=== PATIENT | male | born 1955 | race Caucasian/White ===

== ENCOUNTER 2018-04-13 21:34 | Emergency (ER) | payer MEDICARE, OTHER ==
[~2018-04-13] VITALS: Ht 172.7 cm; Wt 111.1 kg
[~2018-04-13 21:34] MED LIST: ACET325 PO; ADDERALL PO; AMOCLA400S PO; AMOCLA500 PO; AMOX875 PO; AMPDEX10CR PO; ARIP10 PO; ASPI81CH PO; ASPI81EC; ASPI81EC PO; Abilify5 MG PO; Adderall 20 MG20 MG PO; Aspir-Low81 MG PO; Augmentin 875-1 EACH PO; BENA10; BUPR150ER PO; BUPR150T2; Bactrim Ds Tab1 EACH PO; CALCIUM 600 +1 EA11 PO; CEFP200 PO; CHOL10002 PO; CIPR500 PO; CITA20 PO; CLON1 PO; CYCL10 PO; DIAZ10 PO; DOUBLE ANTIBI28.4 GM TOP; DULO60 PO; Depo-Testos200 MG/ML IM; FLUO20; GABA300 PO; GAVILAX17 GM PO; GLIM4; GLIM4 PO; HYDACE10A; HYDACE10B PO; HYDACE5 PO; HYDCHL25; HYDCHL25 PO; HYDCOR2.5B TOP; Hair, Skin & N1 EACH PO; INSLIS75I SC; INSUASPI SUBQ; INSULANI SUBQ; INSULANPEN SUBQ; LAVAP17G; LAVAP17G PO; LISHYD2025 PO; LISI20 PO; Levaquin500 MG PO; Lisinopril2.5 MG; MEDICAL MARIJUANA INH; METF500; METF500 PO; METF500C PO; METH10; METH10 PO; METO10 PO; METO5A PO; Metformin HCl1000 MG PO; NAPR500 PO; NIAC500ER; NIAC500ER PO; Nitrofurantoin50 MG PO; Norco 10-325 T1 EACH PO; OMEG1CAP30; OMEG1CAP30 PO; OMEP10ER; OMEP20ER PO; OXYACE5T PO; Omeprazole20 M1 PO; PARO20 PO; PAXIL40 MG PO; PRAV20; PRAV20 PO; PRIM50 PO; PROM25; PROM25 PO; Pravachol80 MG PO; Pravastatin Sod80 MG PO; RANI150; RANI150 PO; ROSI4; RXHYDACE PO; SPIR25; SPIR50 PO; SULTRIDS PO; Sulfamethoxazo1 EAC4 PO; TAMS.4ER PO; TESTTP TOP; TIOT18; TIOT18 INH; TRAZ50; ZESTORETIC 20-251 EA PO; Zofran Odt4 MG SL; [UNRECOGNIZED DRUG - REMARK]
== END 2018-04-13 22:49 | disposition left against medical advice (07) ==
LOC: ER 21:34
DX: Z53.21 Procedure and treatment not carried out due to patient leaving prior to being seen by health care provider (principal)
CPT/HCPCS: J2405

== ENCOUNTER 2018-11-22 11:56 | Inpatient (IN) | payer MEDICARE ==
[~2018-11-22] VITALS: Ht 180.3 cm; Wt 132.6 kg
[~2018-11-22 11:56] MED LIST changes: -Aspir-Low81 MG PO
[2018-11-22 12:56] LABS: BASOPHILS ABSOLUTE AUTO 0.03 K/mm3 (0.00-0.23); BASOPHILS PERCENT AUTO 0 % (0-2); EOSINOPHILS PERCENT AUTO 0 % (0-6); Hematocrit 40.2 % (37.0-53.0); Hemoglobin 13.4 g/dL (13.5-17.5); IMMATURE GRAN ABSOLUTE AUTO 0.06 K/mm3 (0.00-0.10); IMMATURE GRAN PERCENT AUTO 1 % (0-1); LYMPHOCYTES ABSOLUTE AUTO 0.54 K/mm3 (0.84-5.20); LYMPHOCYTES PERCENT AUTO 6 % (21-46); MONOCYTES ABSOLUTE AUTO 0.33 K/mm3 (0.16-1.47); MONOCYTES PERCENT AUTO 4 % (4-13); Mean Corpuscular HGB 28.3 pg (26.0-34.0); Mean Corpuscular HGB Conc 33.3 g/dL (31.5-36.5); Mean Corpuscular Volume 85 fL (80-100); Mean Platelet Volume 9.6 fL (9.1-12.4); NEUTROPHILS ABSOLUTE AUTO 7.42 K/mm3 (1.96-9.15); NEUTROPHILS PERCENT AUTO 89 % (41-73); Platelet Count 109 K/mm3 (150-400); RDW Coefficient Variation 14.4 % (11.7-14.2); RDW Standard Deviation 44.5 fL (35.1-46.3); Red Blood Cell Count 4.74 M/mm3 (4.30-5.90); White Blood Cell Count 8.38 K/mm3 (4.00-11.30)
[2018-11-22 13:20] LABS: Albumin, Blood 3.3 g/dL (3.4-5.0); Albumin/Globulin Ratio 0.8 (0.8-1.8); Bun/Creatinine Ratio 13.9 (12.0-20.0); Calcium, Blood 7.9 mg/dL (8.5-10.1); Creatinine, Blood 2.02 mg/dL (0.60-1.20); Globulin, Blood 4.1 g/dL (2.2-4.0); Total Protein, Blood 7.4 g/dL (6.4-8.2)
[2018-11-22] MEDS ORDERED: **INCOMPLETE MED REC (16:20)
[2018-11-22] MEDS ORDERED: ARIPIPRAZOLE5 MG PO (16:47)
[2018-11-22] MEDS ORDERED: Aspir-Low81 MG PO (16:48)
[2018-11-22] MEDS ORDERED: Lantus100 UNIT/1 SC (16:50)
[2018-11-22] MEDS ORDERED: Humalog100 UNIT/1 SC (16:52)
[2018-11-22] MEDS ORDERED: Metformin HCl500 MG PO (16:54)
[2018-11-22] MEDS ORDERED: PRIM50 PO (16:56)
[2018-11-22] MEDS ORDERED: ATOR10 PO (16:58)
[2018-11-22] MEDS ORDERED: OMEG1CAP30 PO (16:59)
[2018-11-22] MEDS ORDERED: PARO20 PO (18:08)
[2018-11-22] MEDS ORDERED: ZESTORETIC 20-1 EAC1 PO (18:09)
[2018-11-22] MEDS ORDERED: Bactrim Ds Tab1 EACH PO (18:11)
--- NOTE | 2018-11-22 21:00 | NUR ---
PATIENT ADMITTED THE PATIENT WAS ADMITTED TO THE MEDICAL FLOOR, ROOM #309, FOR CELLULITSIS ON THE RIGHT LOWER LEG. THE PATIENT WAS BROUGHT UP FOR THE ER AFTER REPORT WAS CALLED UP TO THE FLOOR. THE PATIENT'S ADMISSION WAS DONE IN PART BY THE CHARGE NURSE AND THE ADMIOSSION ASSESSMENT BY THE FLOOR NURSE. THE PATIENT COMPLAINED OF PAIN IN HIS LOWER RIGHT LEG, VITALS WERE WNL, LUNGS WERE CLEAR, BUT DIM IN THE BASES, THE PATIENT WAS A&O X4. WILL CONTINUE TO MONITOR.
--- NOTE | 2018-11-23 04:18 | NUR ---
SHIFT SUMMARY THE NOEL WAS ADMITTED TO THE MED FLOOR AT THE START OF THE SHIFT. THE PATIENT IS A&O X4, VITALS WNL AND WITH LUNGS SOUNDS THAT ARE CLEAR, BUT DIM AT THE BASES. THE PATIENT HAS BEEN SLEEPING SINCE 2300, WILL CONTINUE TO MONITOR.
[2018-11-23 05:24] LABS: BASOPHILS ABSOLUTE AUTO 0.02 K/mm3 (0.00-0.23); BASOPHILS PERCENT AUTO 0 % (0-2); Hematocrit 33.6 % (37.0-53.0); Hemoglobin 11.2 g/dL (13.5-17.5); LYMPHOCYTES ABSOLUTE AUTO 0.79 K/mm3 (0.84-5.20); LYMPHOCYTES PERCENT AUTO 15 % (21-46); MONOCYTES ABSOLUTE AUTO 0.33 K/mm3 (0.16-1.47); MONOCYTES PERCENT AUTO 6 % (4-13); Mean Corpuscular HGB 28.4 pg (26.0-34.0); Mean Corpuscular HGB Conc 33.3 g/dL (31.5-36.5); Mean Corpuscular Volume 85 fL (80-100); Mean Platelet Volume 9.8 fL (9.1-12.4); Platelet Count 88 K/mm3 (150-400); RDW Coefficient Variation 14.6 % (11.7-14.2); RDW Standard Deviation 45.4 fL (35.1-46.3); Red Blood Cell Count 3.95 M/mm3 (4.30-5.90); White Blood Cell Count 5.37 K/mm3 (4.00-11.30)
[2018-11-23 05:34] LABS: EOSINOPHILS ABSOLUTE AUTO 0.02 K/mm3 (0.00-0.68); EOSINOPHILS PERCENT AUTO 0 % (0-6); IMMATURE GRAN ABSOLUTE AUTO 0.03 K/mm3 (0.00-0.10); IMMATURE GRAN PERCENT AUTO 1 % (0-1); NEUTROPHILS ABSOLUTE AUTO 4.18 K/mm3 (1.96-9.15); NEUTROPHILS PERCENT AUTO 78 % (41-73)
[2018-11-23 06:05] LABS: Bun/Creatinine Ratio 16.7 (12.0-20.0); Calcium, Blood 7.6 mg/dL (8.5-10.1); Creatinine, Blood 1.68 mg/dL (0.60-1.20); Potassium, Blood 3.8 mmol/L (3.5-5.5)
--- NOTE | 2018-11-23 10:05 | NUR ---
Pt gave [facility] permission to provide care 11/23/18.
--- NOTE | 2018-11-23 18:29 | NUR ---
1828 called provider consult to doctor kaplan per doc order. left message on his personal cell.
--- NOTE | 2018-11-23 18:41 | NUR ---
ACCORDING TO FAMILY AND PATIENT HIS LEG IS INCREASED IN SWELLING AND PAIN. PROVIDER CONSULT CALLED PER DOC ORDER FOR DR WRIGHT. MESSAGE LEFT ON HIS PHONE. FAMILY AT BEDSIDE. CBGS ON THE RISE THIS SHIFT.
[2018-11-23] MEDS ORDERED: ARIP30 PO (20:47)
--- NOTE | 2018-11-24 04:54 | NUR ---
SHIFT SUMMARY THE PATIENT PRESENT THIS SHIFT WITH ELEVATED B/P, BUT RETAKING IT 30 MINUTES LATER, IT HAD RETURNED TO NORMAL LIMITS. THE PATIENT IS A&O X4, WITH LUNGS THAT WERE CLEAR, BUT DIM AT THE BASES. THE PATIENT'S SPOUSE IS IN THE ROOM WITH THE PATIENT. THE PATIENT HAS SLEPT MOST OF SHIFT. THE PATIENT'S LEG DRESSINGS WERE CHANGED THIS SHIFT. THE PATIENT IS SLEEPING AT THIS TIME, WILL CONTINUE TO MONITOR.
[2018-11-24 05:12] LABS: Hematocrit 31.5 % (37.0-53.0); Hemoglobin 10.4 g/dL (13.5-17.5); Mean Corpuscular HGB 28.1 pg (26.0-34.0); Mean Corpuscular Volume 85 fL (80-100); Mean Platelet Volume 9.8 fL (9.1-12.4); Platelet Count 89 K/mm3 (150-400); RDW Coefficient Variation 14.1 % (11.7-14.2); White Blood Cell Count 6.21 K/mm3 (4.00-11.30)
[2018-11-24 05:32] LABS: Albumin, Blood 2.2 g/dL (3.4-5.0); Anion Gap 10 mmol/L (6-16); Blood Urea Nitrogen 18 mg/dL (8-24); Bun/Creatinine Ratio 14.5 (12.0-20.0); CO2, Blood 23 mmol/L (21-32); Calcium, Blood 7.8 mg/dL (8.5-10.1); Chloride, Blood 99 mmol/L (98-108); Creatinine, Blood 1.24 mg/dL (0.60-1.20); Glomerular Filtration Rate >60 (60-); Glucose, Blood 271 mg/dL (70-99); Phosphorus, Blood 1.9 mg/dL (2.5-4.9); Potassium, Blood 3.9 mmol/L (3.5-5.5); Sodium, Blood 132 mmol/L (136-145)
[2018-11-24 18:07] LABS: Vancomycin, Trough 5.7 ug/mL (5.0-10.0)
--- NOTE | 2018-11-24 18:38 | NUR ---
PATIENT HAD DRESSING CHANGED TO AFFECTED LEG. DR WRIGHT CAME BY, NEG FOR DVT. PATIENT HAS RESTED MOST OF THE SHIFT. LARGE BM .
--- NOTE | 2018-11-25 04:23 | NUR ---
SHIFT SUMMARY THE PATIENT PRESENTED THIS SHIFT WITH VITALS WNL, A&O X4 AND WITH LUNGS SOUNDS THAT WERE CLEAR, BUT DIM IN THE BASES. THE PATIENT HAD A DOPPLER STUDY OF HIS RIGHT LOWER LEG TO CHECK FOR THROMBOSIS AND NEEDED TO HAVE HIS LEG REWRAPPED AT THE START OF SHIFT. THE PATIENT'S SPOUSE IS IN THE ROOM WITH THE PATIENT. THE PATIENT'S IV IS S/L AT THIS TIME. THE PATIENT HAS COMPLAINED OF PAIN TWICE THIS SHIFT AND RECEIVED MEDICATION PER ORDERS. THE PATIENT IS RESTING AT THIS TIME, WILL CONTINUE TO MONITOR.
[2018-11-25 04:45] LABS: Hematocrit 31.6 % (37.0-53.0); Hemoglobin 10.4 g/dL (13.5-17.5); Mean Corpuscular HGB 28.2 pg (26.0-34.0); Mean Corpuscular HGB Conc 32.9 g/dL (31.5-36.5); Mean Corpuscular Volume 86 fL (80-100); Mean Platelet Volume 9.7 fL (9.1-12.4); Platelet Count 112 K/mm3 (150-400); RDW Coefficient Variation 14.3 % (11.7-14.2); RDW Standard Deviation 44.9 fL (35.1-46.3); Red Blood Cell Count 3.69 M/mm3 (4.30-5.90); White Blood Cell Count 6.93 K/mm3 (4.00-11.30)
[2018-11-25 05:04] LABS: Albumin, Blood 2.1 g/dL (3.4-5.0); Anion Gap 9 mmol/L (6-16); Blood Urea Nitrogen 18 mg/dL (8-24); Bun/Creatinine Ratio 15.9 (12.0-20.0); CO2, Blood 25 mmol/L (21-32); Calcium, Blood 8.2 mg/dL (8.5-10.1); Chloride, Blood 98 mmol/L (98-108); Creatinine, Blood 1.13 mg/dL (0.60-1.20); Glomerular Filtration Rate >60 (60-); Glucose, Blood 391 mg/dL (70-99); Phosphorus, Blood 3.1 mg/dL (2.5-4.9); Potassium, Blood 4.2 mmol/L (3.5-5.5); Sodium, Blood 132 mmol/L (136-145)
--- NOTE | 2018-11-25 12:17 | NUR ---
NOTIFIED DR LEBRON OF [facility] [place] OF 442, NO NEW ORDERS, CONTINUE WITH CURRENT ORDERS
--- NOTE | 2018-11-25 18:18 | NUR ---
NOTIFIED DR LEBRON OF BLOOD GLUCOSE TRENDING UP AND HOME MEDICATION LIST STATES HE TAKES LANTUS 65 UNITS SC DAILY AND HE IS ONLY RECEIVING LANTUS 15UNITS SC BID. NEW TELEPHONE ORDER FOR LANTUS 20 UNITS SC BID. WILL CONTINUE TO MONITOR.
--- NOTE | 2018-11-25 19:00 | NUR ---
SHIFT SUMMARY PT A&OX4. CALM AND COOPERATIVE WITH CARE. PT RESTING IN BED. SPOUSE ASSIST WITH URINAL IN BED. PT REPORTS PAIN IN RLE, MEDICATED PER EMAR. PT SOB WITH EXERTION >90% ON RA, LS DIM IN BASES. PT DENIES N/V DURING SHIFT. PT RECEIVING IV ANTIBIOTICS. PT BLOOD GLUCOSE TRENDING UP, NOTIFIED. DRESSING CHANGED THIS EVENING, NEW MARGINS MARKED AND PICTURES TAKEN. VSS. NO OTHER ACUTE CHANGES NOTE DURING SHIFT. REPORT GIVEN TO ONCOMING RN.
[2018-11-25 19:31] LABS: Vancomycin, Trough 15.7 ug/mL (5.0-10.0)
--- NOTE | 2018-11-26 04:40 | NUR ---
SHIFT SUMMARY: PT A&O X 4, INDEPENDENT IN ROOM c 'S ASSISTANCE. RLE CELLULITIS; RED + BLISTERING, YELLOW DRAINAGE. DRESSING CHANGE PERFORMED BY ARMANDO ALEJANDRO. DRESSING CHANGE ORDERS QD. IV VANCO ADMINISTERED 1X PER SCHEDULED DOSE. RESP E/U ON ROOM AIR; LS CLEAR. ADA DIET MAINTAINED; PM CBG IS AT 347. ADMINISTERED HUMALOG PER HIGH SS AND 15 UNITS LANTUS PER ORDERS. TREATED 1X c 5 MG PRN OXYCODONE FOR 8 OUT OF 10 PAIN IN TO THE RLE. 20 G IN R FOREARM IS PATENT + SALINE LOCKED AT THIS TIME. NO OTHER CHANGES TO REPORT. WILL CONT TO MONITOR AND PROVIDE CARE UNTIL PRESUMED BY ONCOMING RN.
[2018-11-26 11:06] LABS: F001-IGE EGG WHITE <0.10 kU/L (Class 0); F002-IGE MILK <0.10 kU/L (Class 0); F003-IGE CODFISH <0.10 kU/L (Class 0); F004-IGE WHEAT <0.10 kU/L (Class 0); F010-IGE SESAME SEED <0.10 kU/L (Class 0); F013-IGE PEANUT <0.10 kU/L (Class 0); F014-IGE SOYBEAN <0.10 kU/L (Class 0); F017-IGE HAZELNUT (FILBERT) <0.10 kU/L (Class 0); F020-IGE ALMOND <0.10 kU/L (Class 0); F024-IGE SHRIMP <0.10 kU/L (Class 0); F040-IGE TUNA <0.10 kU/L (Class 0); F041-IGE SALMON <0.10 kU/L (Class 0); F202-IGE CASHEW NUT <0.10 kU/L (Class 0); F256-IGE WALNUT <0.10 kU/L (Class 0); F338-IGE SCALLOP <0.10 kU/L (Class 0)
--- NOTE | 2018-11-26 18:15 | NUR ---
PT AXO, PLEASANT AND COOPERATIVE WITH CARE. DRESSING CHANGED THIS MORNING WITH DR LEBRON PRESENT. DRESSING CHANGES INCREASED TO BID. VSS. NO ACUTE CHANGES THIS SHIFT. PT MEDICATED FOR PAIN PER EMAR. IV LEAKING, DRESSING CHANGED, IMPROVED. ANOTHER IV ATTEMPTED BUT NO SUCCESSFUL AT THIS TIME. BED IN LOW POSITION, CALL LIGHT WITHIN REACH. PT'S SPOUSE COMPLETED BED BATH ON PATIENT AND CHANGED PT'S LINENS. PT AND SPOUSE EDUCATED ON NON-STARCHY VEGETABKES AND ADA WEBSITE.
[2018-11-27 04:50] LABS: BASOPHILS ABSOLUTE AUTO 0.03 K/mm3 (0.00-0.23); BASOPHILS PERCENT AUTO 1 % (0-2); EOSINOPHILS ABSOLUTE AUTO 0.22 K/mm3 (0.00-0.68); EOSINOPHILS PERCENT AUTO 4 % (0-6); Hematocrit 32.7 % (37.0-53.0); Hemoglobin 10.7 g/dL (13.5-17.5); IMMATURE GRAN ABSOLUTE AUTO 0.22 K/mm3 (0.00-0.10); IMMATURE GRAN PERCENT AUTO 4 % (0-1); LYMPHOCYTES ABSOLUTE AUTO 1.33 K/mm3 (0.84-5.20); LYMPHOCYTES PERCENT AUTO 22 % (21-46); MONOCYTES ABSOLUTE AUTO 0.61 K/mm3 (0.16-1.47); MONOCYTES PERCENT AUTO 10 % (4-13); Mean Corpuscular HGB 28.2 pg (26.0-34.0); Mean Corpuscular HGB Conc 32.7 g/dL (31.5-36.5); Mean Corpuscular Volume 86 fL (80-100); NEUTROPHILS ABSOLUTE AUTO 3.74 K/mm3 (1.96-9.15); NEUTROPHILS PERCENT AUTO 61 % (41-73); Platelet Count 175 K/mm3 (150-400); RDW Coefficient Variation 13.9 % (11.7-14.2); RDW Standard Deviation 44.3 fL (35.1-46.3); Red Blood Cell Count 3.79 M/mm3 (4.30-5.90); White Blood Cell Count 6.15 K/mm3 (4.00-11.30)
[2018-11-27 05:15] LABS: Anion Gap 10 mmol/L (6-16); Blood Urea Nitrogen 19 mg/dL (8-24); Bun/Creatinine Ratio 17.9 (12.0-20.0); CO2, Blood 25 mmol/L (21-32); Calcium, Blood 8.2 mg/dL (8.5-10.1); Chloride, Blood 98 mmol/L (98-108); Creatinine, Blood 1.06 mg/dL (0.60-1.20); Glomerular Filtration Rate >60 (60-); Glucose, Blood 303 mg/dL (70-99); Phosphorus, Blood 3.3 mg/dL (2.5-4.9); Potassium, Blood 4.4 mmol/L (3.5-5.5); Sodium, Blood 133 mmol/L (136-145)
--- NOTE | 2018-11-27 05:53 | NUR ---
SHIFT SUMMARY: DRESSING CHANGE TO RLE PERFORMED @ 2100. ABD PADS, KERLEX, AND IIVS APPLIED. SITE IS RED,SWOLLEN,WARM AND BLISTERED. TREATED 2X FOR PAIN c 5MG OXYCODONE. PT A&O X 4, INDEPENDENT IN RM c AT BEDSIDE. CBG 355 THIS EVENING, ADMINISTERED HUMALOG PER SS AND 20 UNITS LANTUS ORDERED. 20 G IN R FOREARM PATENT, SALINE LOCKED. RESP E/U ON ROOM AIR. VSS. WILL CONT TO MONITOR AND PROVIDE CARE UNTIL PRESUMED BY ONCOMING RN.
--- NOTE | 2018-11-27 18:04 | NUR ---
SHIFT SUMMARY PT HAS BEEN IN BED WITH RIGHT LEG ELEVATED ALL SHIFT. DRESSING CHANGED THIS AM TO RLE. MEDICATED FOR PAIN X2 THIS SHIFT. BLOOD SUGARS CONTINUE TO BE HIGH. SCHEDULED LANTUS INCREASED AND TO BE STARTED THIS EVENING. NO ACUTE CHANGES THIS SHIFT. PT RECEIVING IV ANTIBIOTICS. SPOUSE AT BEDSIDE ALL SHIFT. CALL LIGHT IN REACH. WILL CONTINUE TO MONITOR AND REPORT TO ONCOMING RN.
[2018-11-27 19:30] LABS: Vancomycin, Trough 21.5 ug/mL (5.0-10.0)
--- NOTE | 2018-11-28 04:54 | NUR ---
Rn summary: Patient is alert and oriented. Pt has pain in rt lower leg and has been medicated with oxy 5mg with moderate relief. Pt states his pain never goes below a "6". Drsg to rt leg is C/D/I. Patient did not want drsg changed this evening because it was late and he wanted to sleep. Redness remains in foot, areas marked on pen on upper thigh are no longer red. Blistery type skin to top of foot. Blood sugar 356 this shift and pt received insulin as ordered. is at bedside and has assisted him with the urinal and other cares. Call light in reach.
[2018-11-28 06:12] LABS: Albumin, Blood 2.2 g/dL (3.4-5.0); Anion Gap 9 mmol/L (6-16); Blood Urea Nitrogen 18 mg/dL (8-24); Bun/Creatinine Ratio 15.9 (12.0-20.0); CO2, Blood 26 mmol/L (21-32); Calcium, Blood 8.6 mg/dL (8.5-10.1); Chloride, Blood 98 mmol/L (98-108); Creatinine, Blood 1.13 mg/dL (0.60-1.20); Glomerular Filtration Rate >60 (60-); Glucose, Blood 303 mg/dL (70-99); Phosphorus, Blood 3.6 mg/dL (2.5-4.9); Potassium, Blood 4.7 mmol/L (3.5-5.5); Sodium, Blood 133 mmol/L (136-145)
--- NOTE | 2018-11-28 07:59 | NUR ---
NOTIFIED DR. LEBRON PT'S BP 182/86 THIS AM AND IS C/O OF 04/[address] LEBRON PT'S PREVIOUS BLOOD PRESSURES HAVE BEEN WNL. SAID TO MEDICATE PT FOR PAIN AND THEN RECHECK BP. NO OTHER NEW ORDERS AT THIS TIME.
--- NOTE | 2018-11-28 19:12 | NUR ---
SHIFT SUMMARY- PT C/O PAIN IN HIS RLE. MEDS GIVEN PER EMAR. WOUND CLEANED AND DRESSING CHANGED THIS PM. BLOOD SUGARS HAVE BEEN RUNNING IN THE 300'S THIS SHIFT. MEDS GIVEN PER EMAR. DR. LEBRON INCREASED LANTUS TO 60 UNITS BID. PT'S BP 182/86 THIS AM AND PT REPORT PAIN 04/18. NOTIFIED. SEE PREVIOUS NOTE. PAIN MEDS GIVEN AND BP REASSESSED. BP 133/71 AFTER PAIN MEDS. 1 ASSIST TO BSC. USING URINAL. AND PT'S DOG AT BEDSIDE. HELPS WITH CARE. DENIES N/V. DENIES SOB. RESP E/U ON RA. NO OTHER SIGNIFICANT CHANGES THIS SHIFT.
--- NOTE | 2018-11-29 03:57 | NUR ---
SHIFT SUMMARY PATIENT HAD NO ACUTE CHANGES OBSERVED. AXO X4 AND ONE ASSIST TO BSC. PIV REMAINS INTACT. IV ABX INFUSED. CBG 362. VSS/AFEBRILE. DENIES SOB AND N/V. REPORTED RIGHT LEG PAIN AND RECIEVED OXY 5 MG PO PER EMAR. SPOUSE AND PATIENT DOG PRESENT AT BEDSIDE. COOPERATIVE WITH CARE. CALL LIGHT IN REACH. BED IN LOWEST POSITION. WILL CONTINUE TO MONITOR UNTIL DAY SHIFT NURSE ASSUME CARE.
[2018-11-29 05:18] LABS: Hematocrit 35.3 % (37.0-53.0); Hemoglobin 11.8 g/dL (13.5-17.5); Mean Corpuscular HGB 27.9 pg (26.0-34.0); Mean Corpuscular HGB Conc 33.4 g/dL (31.5-36.5); Mean Corpuscular Volume 84 fL (80-100); Mean Platelet Volume 8.6 fL (9.1-12.4); Platelet Count 263 K/mm3 (150-400); RDW Coefficient Variation 13.7 % (11.7-14.2); RDW Standard Deviation 41.5 fL (35.1-46.3); Red Blood Cell Count 4.23 M/mm3 (4.30-5.90); White Blood Cell Count 8.09 K/mm3 (4.00-11.30)
[2018-11-29 05:51] LABS: Anion Gap 5 mmol/L (6-16); Blood Urea Nitrogen 19 mg/dL (8-24); CO2, Blood 28 mmol/L (21-32); Calcium, Blood 8.5 mg/dL (8.5-10.1); Chloride, Blood 99 mmol/L (98-108); Creatinine, Blood 0.95 mg/dL (0.60-1.20); Glomerular Filtration Rate >60 (60-); Glucose, Blood 266 mg/dL (70-99); Potassium, Blood 4.4 mmol/L (3.5-5.5); Sodium, Blood 132 mmol/L (136-145)
[2018-11-29 09:34] LABS: Vancomycin, Trough 19.5 ug/mL (5.0-10.0)
--- NOTE | 2018-11-29 11:36 | NUR ---
HE IS SITTING UP IN THE CHAIR. HIS IS LYING ON HER BENCH BED. THEIR DOG ALSO QUIETLY SITTING. HE SAYS THE OXYCODONE IS STARTING TO HELP HIS R LEG PAIN. HIS R LEG DRESSING IS D&I. HE HAD A BEDBATH AND LINEN CHANGE. HE HAS HAD A BM AND IS VOIDIND FINE.
--- NOTE | 2018-11-29 14:41 | NUR ---
HIS IS GONE FOR A WHILE. HE JUST HAD AN INCONTINENT BM IN THE BED. NO OTHER CHANGES.
--- NOTE | 2018-11-29 16:03 | NUR ---
THE PROCEDURE NURSE JUST STARTED A NEW IV WITH ULTRASOUND. ROCEPHIN INFUSING. VANCOMYCIN HAS BEEN DC'D.
--- NOTE | 2018-11-29 17:04 | NUR ---
HE IS ENCOURAGED THAT HE MAY GET DISCHARGED TOMORROW. JV GRACE TODAY. UP WITH ASSIST TO THE CHAIR A COUPLE OF TIMES SO FAR TODAY. AFEBRILE. PAIN UNDER CONTROL. DRESSING CHANGED TO R LEG AT 1PM. REDNESS THAT EXTENDED UP INTO THE THIGH ON THE WEEKEND HAS COMPLETELY RECEEDED DOWN TO THE LOWER LEG.
--- NOTE | 2018-11-30 04:56 | NUR ---
SHIFT SUMMARY: PT IS ALERT AND ORIENTED. PT IS CALM AND COOPERATIVE WITH CARE. PT CALLS APPROPRIATELY. PT IS A ONE PERSON ASSIST. PT REPORTS R. LEG PAIN, MEDICATING PER EMAR. PT DENIES NAUSEA, VOMITING, AND SOB. PT'S IN THE ROOM OVERNIGHT. PT SLEPT MUCH OF THE NIGHT. DRESSING ON R. LEG INTACT, NO DRAINAGE NOTED. NO ACUTE CHANGES OR COMPLICATIONS THIS SHIFT. WILL REPORT TO DAY NURSE.
[2018-11-30] MEDS ORDERED: OXYC5 PO (11:26)
[2018-11-30] MEDS ORDERED: DOXY100 PO (11:27)
--- NOTE | 2018-11-30 13:39 | NUR ---
WOUND CARE DONE. OXYCODONE GIVEN FOR PAIN AND POTENTIAL INCREASE IN PAIN PROIR TO DISCHARGE. DISCHARGED TO HOME WITH WOUND CARE SUPPLIES, INSTRUCTIONS, 1 RX AND BELONGINGS AT 1311. HE WAS HAPPY TO GO HOME.
== END 2018-11-30 13:11 | disposition home or self-care (01) | DRG 872 ==
LOC: ER 11:56 → MEDS 19:33 → ENPENDDIS 11-30 11:16 → MEDS 11-30 13:11
PROVIDERS: Emergency Medicine; Internal Medicine; Pharmacist; Physician Assistant; ADMIT Internal Medicine
DX: A41.9 Sepsis, unspecified organism (principal); N17.9 Acute kidney failure, unspecified; E87.1 Hypo-osmolality and hyponatremia; L03.115 Cellulitis of right lower limb; R65.20 Severe sepsis without septic shock; N40.0 Benign prostatic hyperplasia without lower urinary tract symptoms; M51.36 Other intervertebral disc degeneration, lumbar region; S80.921A Unspecified superficial injury of right lower leg, initial encounter; E11.40 Type 2 diabetes mellitus with diabetic neuropathy, unspecified; Z79.4 Long term (current) use of insulin; I10 Essential (primary) hypertension
CPT/HCPCS: 36415; 36416; 73701; 80048; 80053; 80069; 80202; 82947; 83605; 85025; 85027; 86003; 87040; 87493; 93971; 96361; 96365-59; 96366; 96367-59; 96375; 99285-25; J0696; J1650; J2270; J2405; J3370; J7030; J7050; J7060; J7120; Q9967

== ENCOUNTER 2019-05-03 16:59 | Inpatient (IN) | payer MEDICARE ==
[~2019-05-03] VITALS: Ht 175.3 cm; Wt 124.7 kg
[~2019-05-03 16:59] MED LIST changes: +**INCOMPLETE MED REC; +ARIP30 PO; +DOXY100 PO; +Metformin HCl500 MG PO; +OXYC5 PO; +ZESTORETIC 20-1 EAC1 PO
[2019-05-03 17:33] LABS: PCO2 Arterial > 105 mmHg (35-45); pH Blood Arterial <6.80 (7.35-7.45)
[2019-05-03 17:34] LABS: PO2 Arterial 75.5 mmHg (80-100)
[2019-05-03 18:10] LABS: Hematocrit 38.1 % (37.0-53.0); Hemoglobin 11.1 g/dL (13.5-17.5); Mean Corpuscular HGB 28.3 pg (26.0-34.0); Mean Corpuscular HGB Conc 29.1 g/dL (31.5-36.5); Mean Corpuscular Volume 97 fL (80-100); Mean Platelet Volume 10.4 fL (9.1-12.4); NRBC ABSOLUTE 0.12 K/mm3 (0.00-0.02); NRBC Auto 0.6 /100 WBC (0.0-0.2); Platelet Count 165 K/mm3 (150-400); RDW Coefficient Variation 13.9 % (11.7-14.2); RDW Standard Deviation 49.2 fL (35.1-46.3); Red Blood Cell Count 3.92 M/mm3 (4.30-5.90); White Blood Cell Count 20.53 K/mm3 (4.00-11.30)
[2019-05-03 18:14] LABS: PCO2 Arterial 61.1 mmHg (35-45); PO2 Arterial 92.6 mmHg (80-100); pH Blood Arterial 6.81 (7.35-7.45)
[2019-05-03] MEDS ORDERED: Micro-K10 MEQ PO (19:06)
[2019-05-03] MEDS ORDERED: FUROSEMIDE20 MG PO (19:06)
[2019-05-03] MEDS ORDERED: Lantus100 UNIT/1 SC (19:07)
[2019-05-03] MEDS ORDERED: Percocet 10-321 EACH PO (19:08)
[2019-05-03] MEDS ORDERED: DULO30 PO (19:08)
[2019-05-03] MEDS ORDERED: Metformin HCl1000 MG PO (19:09)
[2019-05-03] MEDS ORDERED: OMEP20ER PO (19:09)
[2019-05-03] MEDS ORDERED: ZESTORETIC 20-251 EA PO (19:10)
[2019-05-03] MEDS ORDERED: Primidone50 MG PO (19:10)
[2019-05-03] MEDS ORDERED: ATOR10 PO (19:11)
[2019-05-03] MEDS ORDERED: GABA300 PO (19:11)
[2019-05-03] MEDS ORDERED: OMEG1CAP30 PO (19:11)
[2019-05-03] MEDS ORDERED: Novolog100 UNIT/1 SC (19:13)
[2019-05-03] MEDS ORDERED: ARIPIPRAZOLE5 MG PO (19:13)
[2019-05-03] MEDS ORDERED: Aspir-Low81 MG PO (19:23)
[2019-05-03 19:32] LABS: Albumin, Blood 2.2 g/dL (3.4-5.0); Albumin/Globulin Ratio 0.8 (0.8-1.8); Bilirubin, Total 0.3 mg/dL (0.1-1.0); Bun/Creatinine Ratio 12.6 (12.0-20.0); Calcium, Blood 8.5 mg/dL (8.5-10.1); Creatinine, Blood 1.9 mg/dL (0.60-1.20); Globulin, Blood 2.9 g/dL (2.2-4.0); Magnesium, Blood 2.9 mg/dL (1.6-2.4); Potassium, Blood 4.7 mmol/L (3.5-5.5); Total Protein, Blood 5.1 g/dL (6.4-8.2)
[2019-05-03 19:32] LABS: BAND PERCENT MAN 14 % (0-8); BASOPHILS PERCENT MAN 0 % (0-2); EOSINOPHILS PERCENT MAN 1 % (0-6); LYMPHOCYTES % ATYPICAL MANUAL 1 % (0-0); LYMPHOCYTES ABSOLUTE MAN 9.44 K/mm3 (0.84-5.20); LYMPHOCYTES PERCENT MAN 45 % (21-46); METAMYELOCYTE ABSOLUTE MAN 1.23 K/mm3 (0.00-0.00); METAMYELOCYTE PERCENT MAN 6 % (0-0); MONOCYTES PERCENT MAN 0 % (4-13); MYELOCYTE ABSOLUTE MAN 0.61 K/mm3 (0.00-0.00); MYELOCYTE PERCENT MAN 3 % (0-0); NEUTROPHILS ABSOLUTE MAN 9.03 K/mm3 (1.96-9.15); SEG NEUTROPHILS PERCENT MAN 30 % (41-73); TOTAL CELLS COUNTED 100
[2019-05-03 19:34] LABS: Troponin I 0.494 ng/mL (0.000-0.040)
[2019-05-03 19:36] LABS: U Amphetamine Screen Not Detected; U Barbituate Screen Not Detected; U Benzodiazapine Screen Not Detected; U Buprenorphine Screen Not Detected; U Cannabinoids Screen Not Detected; U Cocaine Screen Not Detected; U Methadone Screen DETECTED; U Methamphetamine Screen Not Detected; U Opiates Screen DETECTED; U Oxycodone Screen Not Detected; U Phencyclidine Screen Not Detected; U Propoxyphene Screen Not Detected
[2019-05-03 20:09] LABS: International Normalized Ratio 1.88; Prothrombin Time Results 18.8 Sec (9.7-11.5)
[2019-05-03 20:30] LABS: Calcium, Ionized (POC) 1.06 mmol/L (1.10-1.46); Chloride (POC) 99 mmol/L (98-108); Creatinine (POC) 2.1 mg/dL (0.8-1.3); Glucose (ISTAT POC) 409 mg/dL (70-99); Hemoglobin (POC) 13.3 g/dL (13.5-17.5); Potassium (POC) 6.2 mmol/L (3.5-5.5); Sodium (POC) 136 mmol/L (135-148); Total CO2 (POC) 20 mmol/L (21-32)
[2019-05-03 20:36] LABS: PCO2 Arterial 60.9 mmHg (35-45); PO2 Arterial 50.8 mmHg (80-100); pH Blood Arterial 6.83 (7.35-7.45)
--- NOTE | 2019-05-03 21:13 | NUR ---
PT ARRIVED ON UNIT VIA STRETCHER AT 1934. PT INTUBATED WITH NO SEDATION; UNRESPONSIVE UPON ARRIVAL; PUPILS NON-RESPONSIVE. EPI GTT NOTED TO BE EMPTY. NOTIFIED PHARMACY RIGHT AWAY. HOOKED UP TO MONITOR; RHYTHM NOTED TO BE NSR WITH HR 70-80'S. LEVOPHED GTT 30MCG/MIN WITH RATE 113MLS/HR; BICARB AT 125MLS/HR. VENT SETTINGS AC 30, TV 500, FIO2 100%, PEEP 8 WITH OXYGEN SATURATIONS 70'S. PT'S BELLY VERY DISTENDED AND HARD; CHECKED PLACEMENT OF NG TUBE; PLACEMENT NOT ABLE TO CONFIRM; PULLED NG TUBE IN ORDER TO PLACE OG INSTEAD. PT STARTED TO RENUKA DOWN; PULSE CHECK AT 1945; NO PULSE NOTED WITH PEA, CPR INITIATED. 1MG OF EPI ADMINISTERED AT 1946, FOLLOWED BY AN AMP OF SODIUM BICARB AT 1947. PULSE CHECK AT 1948, NO PULSE NOTED WITH PEA; CPR CONTINUED. AT 1949 ANOTHER 1MG OF EPI ADMINISTERED, FOLLOWED BY AN AMP OF SODIUM BICARB AND CALCIUM CHLORIDE AT 1950. PULSE CHECK AT 1951; PEA, CPR CONTINUED. AT 1952 ANOTHER 1MG OF EPI ADMINISTERED. CAMPOS SALAS NP SPOKE WITH FAMILY REGARDING CONTINUING CPR; PER FAMILY IT WAS OKAY TO STOP CPR, BUT CONTINUE MEDICATIONS AND VENTILATOR. PERFORMED PULSE CHECK AT 1953; PULSE NOTED. EPI GTT HUNG AT 20MCG/MIN WITH RATE OF 600MLS/HR. PT RESUMED NSR WITH HR 70-80'S. BLOOD PRESSURE AT 1955 117/51. PT REMOVED FROM VENT DURING CPR AND WAS VENTILATED VIA AMBU-BAG; RESUMED VENT SETTINGS OF AC 30, TV 500, FIO2 100%, PEEP 8; OXYGEN SATURATIONS REMAINED IN THE 70'S; DR. MAURER ORDERED FOR PEEP TO INCREASE PEEP TO 12 AT 2003. CLEANED PT UP QUICKLY IN ORDER TO CALL FAMILY BACK TO THE ROOM TO SAY THEIR GOODBYES. REPORTED CRITICAL LAB VALUES TO DR. MAURER AND CAMPOS SALAS NP REGARDING LACTIC ACID 18.5 AND PTT 103.9. NEW ORDERS FOR ANOTHER AMP OF SODIUM BICARB. AT APPROXIMATELY 2099 PT WAS NOTED TO START BRADYING DOWN AGAIN. FAMILY CALLED BACK TO ROOM. TIME OF CALLED AT 2101. STOPPED ALL GTT'S, TURNED OFF VENTILATOR, AND GAVE THE FAMILY THEIR PRIVACY. PHONE CALL PLACED TO SPIRITUAL CARE TO COME AND SPEAK WITH FAMILY.
--- NOTE | 2019-05-03 22:15 | NUR ---
Called in at [facility] to provide direction and prayer to overwhelmed family. They were tearful, but appropriate. Spouse clearly in shock. Prayed for pt at bedside and with family in ICU waiting area. Family has selected [facility] for arrangements. Advised family to take their time saying goodbye and to support one another in coming days. They verbalized appreciation for guidence and prayer.
--- NOTE | 2019-05-04 00:38 | NUR ---
PT'S RING AND BRACELET HANDED TO .
== END 2019-05-03 21:02 | DRG 917 ==
LOC: ER 16:59 → ICUE 17:00 → ICUW 17:00 → ICUE 17:48 → ICUW 17:48 → ICUE 21:02 → ICUW 21:02
PROVIDERS: Emergency Medicine; Internal Medicine Critical Care Medicine; Nurse Practitioner Acute Care; ADMIT Internal Medicine Interventional Cardiology
PROC: 02HV33Z Insertion of Infusion Device into Superior Vena Cava, Percutaneous Approach (ICD-10-PCS; principal; 2019-05-03)
PROC: 3E033XZ Introduction of Vasopressor into Peripheral Vein, Percutaneous Approach (ICD-10-PCS; 2019-05-03)
DX: T40.601A Poisoning by unspecified narcotics, accidental (unintentional), initial encounter (principal); J96.02 Acute respiratory failure with hypercapnia; I21.A1 Myocardial infarction type 2; J96.01 Acute respiratory failure with hypoxia; Z68.41 Body mass index [BMI] 40.0-44.9, adult; G93.1 Anoxic brain damage, not elsewhere classified; E11.40 Type 2 diabetes mellitus with diabetic neuropathy, unspecified; I10 Essential (primary) hypertension; G47.33 Obstructive sleep apnea (adult) (pediatric); E66.01 Morbid (severe) obesity due to excess calories; E11.621 Type 2 diabetes mellitus with foot ulcer; E78.5 Hyperlipidemia, unspecified; R57.0 Cardiogenic shock; Z79.4 Long term (current) use of insulin; E87.5 Hyperkalemia; J44.9 Chronic obstructive pulmonary disease, unspecified; F32.9 Major depressive disorder, single episode, unspecified; I95.9 Hypotension, unspecified; I46.8 Cardiac arrest due to other underlying condition
CPT/HCPCS: 31720; 36415; 36556; 36600; 36680; 51702; 71045; 80047; 80053; 82330; 82803; 82947; 83605; 83735; 84484; 85014; 85025; 85379; 85384; 85610; 85730; 87040; 92950; 93005; 93010; 94002; 94644; 96365-59; 96375-59; 96376-59; 99291-25; 99292; C1751; J0171; J0610; J1644; J1815; J2310; J2543; J2930; J3370; J7030; J7050; J7060; J7070; J7120